=== PATIENT | male | born 1980 | race American Indian/Alaskan Native ===

== ENCOUNTER 2018-12-15 05:51 | Emergency (ER) | payer MEDICAID ==
[2018-12-15 06:03] VITALS: BP 124/71; PULSE 90; TEMP 98.3; O2SAT 96
--- NOTE | 2018-12-15 06:07 | C.PDOC ---
History Of Present Illness 38 year old male presents to the ER with nasal congestion for the past 2 days now with post nasal drip, sore throat, and dry cough. Denies fever or chills. Time Seen by Provider: 12/15/18 06:07 Chief Complaint (Nursing): Cough, Cold, Congestion History Per: Patient History/Exam Limitations: no limitations Onset/Duration Of Symptoms: Days (2) Current Symptoms Are (Timing): Still Present Location Of Pain: Throat Sick Contacts (Context): None Associated Symptoms: Sore Throat, Cough, Nasal Congestion. denies: Sputum Ear Symptoms: Bilateral: None Recent travel outside of the [place]: No Past Medical History Reviewed: Historical Data, Nursing Documentation, Vital Signs Vital Signs: Last Vital Signs Temp 98.3 F 12/15/18 05:56 Pulse 90 12/15/18 05:56 Resp 20 12/15/18 05:56 BP 124/71 12/15/18 05:56 Pulse Ox 96 12/15/18 05:56 Family History: States: No Known Family Hx - Social History Hx Alcohol Use: Yes Hx Substance Use: No - Immunization History Hx Tetanus Toxoid Vaccination: No Hx Influenza Vaccination: No Hx Pneumococcal Vaccination: No Review Of Systems Constitutional: Negative for: Fever, Chills ENT: Positive for: Nose Congestion, Throat Pain Respiratory: Positive for: Cough Gastrointestinal: Negative for: Nausea, Vomiting Physical Exam - Physical Exam Appears: Non-toxic Skin: Normal Color, Warm, Dry Head: Atraumatic, Normacephalic Eye(s): bilateral: Normal Inspection Ear(s): Bilateral: Normal Nose: Normal Oral Mucosa: Moist Throat: Normal, No Erythema, No Exudate Neck: Normal, Supple Neurological/Psych: Oriented x3, Normal Speech ED Course And Treatment O2 Sat by Pulse Oximetry: 96 (room air) Pulse Ox Interpretation: Normal Progress Note: Patient is resting comfortably in the ER in no acute distress, vitals are stable, will discharge home with Rx and instructions to follow up with PMD. Disposition Counseled Patient/Family Regarding: Diagnosis, Need For Followup - Disposition Referrals: [facility] [Outside] Disposition: HOME/ ROUTINE Disposition Time: 06:23 Condition: STABLE Additional Instructions: Increase fluids Use all medications as directed return to ER if worse Prescriptions: Benzonatate [Tessalon Perles] 200 mg PO TID #14 sgl Cetirizine HCl [Zyrtec] 10 mg PO DAILY #14 capsule Fluticasone Propionate [Flonase] 1 actuation NS BID #1 bottle Instructions: Cough, Runny Nose, and the Common Cold (DC) Forms: [employer] (Czech) - Clinical Impression Clinical Impression: Upper respiratory infection - PA / [employer] / Resident Statement MD/DO has reviewed & agrees with the documentation as recorded. - Scribe Statement The provider has reviewed the documentation as recorded by the Scribe Kd Grayson All medical record entries made by the Naliniibrenee were at my direction and personally dictated by me. I have reviewed the chart and agree that the record accurately reflects my personal performance of the history, physical exam, me dical decision making, and the department course for this patient. I have also personally directed, reviewed, and agree with the discharge instructions and disposition.
[2018-12-15 06:30] VITALS: RESP 16
== END 2018-12-15 06:31 | disposition home or self-care (01) ==
LOC: C.ER 05:51
DX: J06.9 Acute upper respiratory infection, unspecified (principal)